=== PATIENT | male | born 1975 | race Caucasian/White ===

== ENCOUNTER 2019-12-28 04:57 | Emergency (ER) | payer OTHER ==
[~2019-12-28] VITALS: Ht 182.9 cm; Wt 122.5 kg
--- NOTE | 2019-12-28 05:15 | NUR ---
PT CAME TO THE ED C/O BLE CELLULITIS FOR MORE THAN A WEEK. +PAIN +SWELLING +REDNESS +WARM. PT AAOX4, RESPIRATIONS EVEN AND UNLABORED ON RA W/ NAD NOTED. PT CONNECTED TO THE MANAGER INTERMEDIATE AND POX.
--- NOTE | 2019-12-28 05:18 | NUR ---
DR ZAFAR AT BEDSIDE
[2019-12-28] MEDS ORDERED: KETOROLAC TROMETHAMINE INJ 30 MG/ML VIAL ONE (05:22)
[2019-12-28] MEDS ORDERED: SULFAMETH/TRIMETH 800/160 MG 1 UDTAB TABLET ONE (05:23)
[2019-12-28] MEDS ORDERED: KETOROLAC TROMETHAMINE INJ 60 MG/2 ML VIAL IM ONE (05:30)
[2019-12-28] MEDS ORDERED: SULFAMETH/TRIMETH 800/160 MG 1 UDTAB TABLET PO ONE (05:30)
--- NOTE | 2019-12-28 06:51 | NUR ---
Patient discharged to home in stable condition. Written and verbal after care instructions given. Patient verbalizes understanding of instruction.
[2019-12-28 06:52] VITALS: BP 151/84
== END 2019-12-28 06:53 | disposition home or self-care (01) ==
LOC: ER 04:57
DX: L03.116 Cellulitis of left lower limb (principal); L03.115 Cellulitis of right lower limb; I10 Essential (primary) hypertension; Z88.6 Allergy status to analgesic agent; Z88.5 Allergy status to narcotic agent
CPT/HCPCS: 96372; 99283; J1885